=== PATIENT | male | born 1945 | race Caucasian/White ===

== ENCOUNTER 2020-07-13 19:04 | Emergency (ER) | payer OTHER, MEDICARE ==
[~2020-07-13] VITALS: Ht 175.3 cm; Wt 79.0 kg
[2020-07-13 20:06] LABS: BASO # 0.1 x10^3/uL (0.0-0.2); BASO % 1 % (0-3); EOS # 0.2 x10^3/uL (0.0-0.7); EOS % 2 % (0-3); HEMOGLOBIN 14.5 g/dL (13.0-17.5); LYMPH # 1.3 x10^3/uL (1.0-4.8); LYMPH % 12 % (24-48); MEAN CORPUSCULAR HEMOGLOBIN 32 pg (25-35); MEAN CORPUSCULAR HGB CONC 35 g/dL (31-37); MEAN CORPUSCULAR VOLUME 93 fL (79-100); MONO # 1.1 x10^3/uL (0.0-1.1); MONO % 10 % (0-9); NEUT # 8.6 x10^3/uL (1.8-7.7); NEUT % 76 % (31-73); PLATELET COUNT 249 x10^3/uL (140-400); RED BLOOD COUNT 4.54 x10^6/uL (4.30-5.70); RED CELL DISTRIBUTION WIDTH 13.6 % (11.5-14.5); WHITE BLOOD COUNT 11.4 x10^3/uL (4.0-11.0)
[2020-07-13 20:15] LABS: PROTHROMBIN TIME PATIENT 11.8 SEC (11.7-14.0)
[2020-07-13 20:19] LABS: CALCIUM 9.5 mg/dL (8.5-10.1); CREATININE 0.9 mg/dL (0.7-1.3); GFR 82.7; POTASSIUM 3.9 mmol/L (3.5-5.1)
[2020-07-13 20:25] LABS: ALBUMIN/GLOBULIN RATIO 1.1 (1.0-1.7); TOTAL BILIRUBIN 0.6 mg/dL (0.2-1.0); TOTAL PROTEIN 7.7 g/dL (6.4-8.2)
[2020-07-13 20:30] LABS: BILIRUBIN,URINE NEGATIVE (NEG); CLARITY,URINE CLEAR; COLOR,URINE YELLOW; NITRITE,URINE NEGATIVE (NEG); PH,URINE 5.5 (<5.0-8.0); PROTEIN,URINE NEGATIVE (NEG-TRACE)
[2020-07-13 20:34] LABS: BACTERIA,URINE 0 /HPF (0-FEW); RBC,URINE 0 /HPF (0-2); WBC,URINE OCC /HPF (0-4)
[2020-07-13 20:35] LABS: SQUAMOUS EPITHELIAL CELL,UR OCC /LPF
[2020-07-13] MEDS ORDERED: KETOROLAC 30 MG/ML VIAL. IVP ONE (21:00)
[2020-07-13] MEDS ORDERED: DEXAMETHASONE SOD PHOS 4 MG/ML VIAL IVP ONE (21:00)
--- NOTE | 2020-07-13 21:23 | RAD ---
Exam: VENOUS LOWER EXTREMITY RIGHT Indication: Reason: pain, swelling / Spl. Instructions: / History: Technique: Color-flow and pulsed wave duplex ultrasound with compression of venous structures of the right lower extremity. Comparison: None Available. Findings: Duplex ultrasound with compression of the deep venous structures of the right lower extremity from the common femoral vein through the popliteal vein is negative for DVT. The posterior tibial and peroneal veins are segmentally visualized and patent where seen. Normal venous waveforms and augmentation are noted throughout. Impression: No evidence for DVT in the right lower extremity. Electronically signed by: Prasad Barraza MD (07/13/2020 9:20 PM) SERGIO
[2020-07-13 22:39] VITALS: BP 120/70
--- NOTE | 2020-07-13 22:58 | RAD ---
CT scan of the abdomen and pelvis with contrast 07/13/2020 CLINICAL HISTORY: Right flank pain. TECHNIQUE: Unenhanced, contiguous, 2 mm axial sections were obtained through the abdomen and pelvis. One or more of the following individualized dose reduction techniques were utilized for this study: 1. Automated exposure control. 2. Adjustment of the mA and/or kV according to patient size. 3. Use of iterative reconstruction technique. FINDINGS: Images through the lung bases demonstrate minimal dependent subsegmental atelectasis bilaterally. There is mild cardiomegaly. A 2.3 cm rounded low-attenuation lesion is seen involving the left lobe of the liver consistent with a hepatic cyst. The spleen, pancreas, adrenal glands are within normal limits. A 1 cm nonobstructing calculus is seen involving the mid/lower pole of the left kidney. A 1 to 2 mm nonobstructing calculus is seen involving the superior pole of the left kidney. A 1 mm nonobstructing calculus is seen involving the lower pole of the right kidney. Mild fullness of the right intrarenal collecting system is seen. The right ureter is mildly dilated throughout its course. Within the right UVJ a faint 1 mm calcific density is seen which is felt to represent a right ureteral calculus. This appears to be causing mild obstruction of the right collecting system. There is no evidence of obstruction of the left collecting system. Atherosclerotic calcification abdominal aorta and its branches is noted. The abdominal aorta tapers normally. The gallbladder is contracted. No free fluid or free air is seen within the abdomen. There is no evidence of bowel obstruction. The appendix is well-visualized and is within normal limits. Images through pelvis demonstrate the urinary bladder distended with urine. The prostate gland is enlarged likely related to BPH. Calcifications are seen within the pelvis consistent with phleboliths. No free fluid is seen. Very mild S-shaped curvature of the thoracolumbar spine is seen. Degenerative changes are seen involving lower thoracic and mid and lower lumbar spine. IMPRESSION: There appears to be a 1 mm distal right ureteral calculus at the right UVJ causing mild obstruction of the right collecting system. Electronically signed by: Hugo Torres MD (07/13/2020 10:55 PM) [id number]
[2020-07-13] MEDS ORDERED: OXYC1TAB15 PO (23:38)
[2020-07-13] MEDS ORDERED: METH4TAB2 PO (23:38)
--- NOTE | 2020-07-13 23:39 | PHYS DOC ---
Past Medical History Past Medical History: No Pertinent History Past Surgical History: No Surgical History Smoking Status: Never Smoker Alcohol Use: None General Adult EDM: Chief Complaint: HIP PAIN HPI: HPI: Patient is a 74-year-old male who presents to the emergency room with right hip pain that radiates to the front and down his leg. He has never had pain similar to this in the past. He states it started over the last couple of days and is significantly worse anytime he tries to walk. He denies any urinary symptoms. He states he did have some leg pain that was in his calf for quite a while but is now resolved for about a week. Review of Systems: Review of Systems: General: Denies fever, chills, sweats, fatigue Eyes: Denies drainage, blurred vision, eye redness HENT: Denies rhinorrhea, sore throat, earache Respiratory: Denies cough, shortness of breath, wheezing Cardiac: Denies edema, palpitations, chest pain GI: Denies abdominal pain, Nausea, vomiting MSK: Reports flank pain, back pain, leg pain Skin: Denies rash, jaundice Neuro: Denies headache, dizziness Psychiatric: Denies SI/HI Heart Score: Risk Factors: Risk Factors: DM, Current or recent (<one month) smoker, HTN, HLP, family history of CAD, obesity. Risk Scores: Score 0 - 3: 2.5% MACE over next 6 weeks - Discharge Home Score 4 - 6: 20.3% MACE over next 6 weeks - Admit for Clinical Observation Score 7 - 10: 72.7% MACE over next 6 weeks - Early Invasive Strategies Current Medications: Current Medications Medications (Trade) Dose Ordered Sig/[facility] Start Time Stop Time Status Last Admin Dose Admin Dexamethasone Sodium Phosphate (Decadron) 10 mg 1X ONCE 07/13/20 21:00 07/13/20 21:01 DC 07/13/20 20:56 10 MG Ketorolac Tromethamine (Toradol 30mg Vial) 30 mg 1X ONCE 07/13/20 21:00 07/13/20 21:01 DC 07/13/20 20:56 30 MG Allergies: Allergies: Allergies Coded Allergies Type Severity Reaction Last Updated Verified No Known Drug Allergies 07/13/20 No Physical Exam: PE: General: Awake, alert, appears uncomfortable. Well Nourished, well hydrated. Cooperative HEENT: Atraumatic, EOMI, PERRL, airway patent, moist oral mucosa Neck: Supple, trachea midline Respiratory: CTA bilaterally, normal effort, no wheezing/crackles CV: RRR, no murmur, cap refill <2 GI: Soft, nondistended, nontender, no masses MSK: No obvious deformities, no back tenderness Skin: Warm, dry, intact Neuro: A&O x3, speech NL, sensory and motor grossly intact, no focal deficits Psych: Normal affect, normal mood, not suicidal or homicidal Current Patient Data: Labs: Laboratory Tests Test 07/13/20 19:50 07/13/20 20:20 White Blood Count 11.4 x10^3/uL (4.0-11.0) H Red Blood Count 4.54 x10^6/uL (4.30-5.70) Hemoglobin 14.5 g/dL (13.0-17.5) Hematocrit 42.0 % (39.0-53.0) Mean Corpuscular Volume 93 fL (79-100) Mean Corpuscular Hemoglobin 32 pg (25-35) Mean Corpuscular Hemoglobin Concent 35 g/dL (31-37) Red Cell Distribution Width 13.6 % (11.5-14.5) Platelet Count 249 x10^3/uL (140-400) Neutrophils (%) (Auto) 76 % (31-73) H Lymphocytes (%) (Auto) 12 % (24-48) L Monocytes (%) (Auto) 10 % (0-9) H Eosinophils (%) (Auto) 2 % (0-3) Basophils (%) (Auto) 1 % (0-3) Neutrophils # (Auto) 8.6 x10^3/uL (1.8-7.7) H Lymphocytes # (Auto) 1.3 x10^3/uL (1.0-4.8) Monocytes # (Auto) 1.1 x10^3/uL (0.0-1.1) Eosinophils # (Auto) 0.2 x10^3/uL (0.0-0.7) Basophils # (Auto) 0.1 x10^3/uL (0.0-0.2) Prothrombin Time 11.8 SEC (11.7-14.0) Prothrombin Time INR 0.9 (0.8-1.1) Sodium Level 140 mmol/L (136-145) Potassium Level 3.9 mmol/L (3.5-5.1) Chloride Level 102 mmol/L (98-107) Carbon Dioxide Level 31 mmol/L (21-32) Anion Gap 7 (6-14) Blood Urea Nitrogen 16 mg/dL (8-26) Creatinine 0.9 mg/dL (0.7-1.3) Estimated GFR (Cockcroft-Gault) 82.7 BUN/Creatinine Ratio 18 (6-20) Glucose Level 95 mg/dL (70-99) Calcium Level 9.5 mg/dL (8.5-10.1) Total Bilirubin 0.6 mg/dL (0.2-1.0) Aspartate Amino Transferase (AST) 17 U/L (15-37) Alanine Aminotransferase (ALT) 25 U/L (16-63) Alkaline Phosphatase 63 U/L (46-116) Total Protein 7.7 g/dL (6.4-8.2) Albumin 4.0 g/dL (3.4-5.0) Albumin/Globulin Ratio 1.1 (1.0-1.7) Lipase 884 U/L (73-393) H Urine Collection Type Unknown Urine Color Yellow Urine Clarity Clear Urine pH 5.5 (<5.0-8.0) Urine Specific [place] 1.015 (1.000-1.030) Urine Protein Negative mg/dL (NEG-TRACE) Urine Glucose (UA) Negative mg/dL (NEG) Urine Ketones (Stick) Negative mg/dL (NEG) Urine Blood Negative (NEG) Urine Nitrite Negative (NEG) Urine Bilirubin Negative (NEG) Urine Urobilinogen Dipstick 1.0 mg/dL (0.2 mg/dL) Urine Leukocyte Esterase Negative (NEG) Urine RBC 0 /HPF (0-2) Urine WBC Occ /HPF (0-4) Urine Squamous Epithelial Cells Occ /LPF Urine Bacteria 0 /HPF (0-FEW) Urine Mucus Mod /LPF Laboratory Tests 07/13/20 19:50 Laboratory Tests 07/13/20 19:50 Vital Signs: Vital Signs Date Time Temp Pulse Resp B/P (MAP) Pulse Ox O2 Delivery O2 Flow Rate FiO2 07/13/20 20:49 86 18 132/73 (92) 99 Room Air 07/13/20 19:20 98.3 98.3 EKG: EKG: [] Radiology/Procedures: Radiology/Procedures: [] Course & Med Decision Making: Course & Med Decision Making Pertinent Labs and Imaging studies reviewed. (See chart for details) Patient is a 74-year-old male who presents to the emergency room with right flank pain that radiates into his leg and groin area. This could be related to a kidney stone versus sciatica versus blood clot. Ultrasound will be done of the leg, CT abdomen pelvis, labs were ordered. US negative. CT shows kidney stone. Patient will be treated symptomatically. Patient's test results and vitals while in the ED were fully reviewed and discussed with the patient. Patient is stable and at this time does not need admission to the hospital. We have discussed strict return precautions and the importance of following up with their Primary Care Physician. Patient stated understanding and was given an opportunity to ask any questions. Patient is in agreement with plan. Dragon Disclaimer: Dragon Disclaimer: This electronic medical record was generated, in whole or in part, using a voice recognition dictation system. Departure Departure Impression: Primary Impression: Kidney stone Additional Impression: Sciatica Disposition: 01 HOME, SELF-CARE Condition: STABLE Referrals: ELIZABETH PRATT DO (PCP) Patient Instructions: Kidney Stones, Sciatica Scripts Methylprednisolone (MEDROL) 4 Mg Tab.ds.pk 1 PKG PO UD for inflammation, #1 PKG Prov: CARLY WILDE MD 07/13/20 Oxycodone/Apap 5-325 (PERCOCET 5-325 MG TABLET ) 1 Each Tablet 1 TAB PO PRN Q6HRS PRN for PAIN, #12 TAB 0 Refills Prov: CARLY WILDE MD 07/13/20 Justicifation of Admission Dx: Justifications for Admission: Justification of Admission Dx: N/A CARLY WILDE MD Jul 13, 2020 23:38
[2020-07-13] MEDS ORDERED: oxyCODONE/APAP 5/325 1 TAB TABLET PO ONE (23:55)
== END 2020-07-14 00:17 | disposition home or self-care (01) ==
LOC: ER 19:04
DX: N20.0 Calculus of kidney (principal); M54.31 Sciatica, right side; M25.551 Pain in right hip
CPT/HCPCS: 36415; 74176; 80053; 81001; 83690; 85025; 85610; 93971; 96374; 96375; 99285; J1100; J1885

== ENCOUNTER 2020-09-26 07:17 | Emergency (ER) | payer OTHER, MEDICARE ==
[~2020-09-26] VITALS: Ht 175.3 cm; Wt 84.1 kg
[~2020-09-26 07:17] MED LIST: METH4TAB2 PO; OXYC1TAB15 PO
--- NOTE | 2020-09-26 07:23 | PHYS DOC ---
Past Medical History Past Medical History: Kidney Stone Past Surgical History: No Surgical History Smoking Status: Never Smoker Alcohol Use: None General Adult EDM: Chief Complaint: FLANK PAIN HPI: HPI: Patient is a 74 year old male who presented to ER for evaluation of right-sided flank pain and lower back pain that radiating to right leg started 2 days ago. Pain was subsided then become more severe this morning so he came here for evaluation. Patient denies any nausea vomiting, denies any bowel or bladder incontinence, no leg weakness or numbness. Patient was seen here on July 13 this year for abdominal pain, he was diagnosed with kidney stone. Patient denies any injury. Patient has no history of hypertension or diabetic. Review of Systems: Review of Systems: Constitutional: Denies fever or chills. [] Eyes: Denies change in visual acuity. [] HENT: Denies nasal congestion or sore throat. [] Respiratory: Denies cough or shortness of breath. [] Cardiovascular: Denies chest pain or edema. [] GI: Positive for right side abdominal pain, no nausea vomiting, no diarrhea : Denies dysuria. [] Musculoskeletal: Positive for right-sided back pain. Integument: Denies rash. [] Neurologic: Denies headache, focal weakness or sensory changes. [] Endocrine: Denies polyuria or polydipsia. [] Lymphatic: Denies swollen glands. [] Psychiatric: Denies depression or anxiety. [] Heart Score: Risk Factors: Risk Factors: DM, Current or recent (<one month) smoker, HTN, HLP, family history of CAD, obesity. Risk Scores: Score 0 - 3: 2.5% MACE over next 6 weeks - Discharge Home Score 4 - 6: 20.3% MACE over next 6 weeks - Admit for Clinical Observation Score 7 - 10: 72.7% MACE over next 6 weeks - Early Invasive Strategies Allergies: Allergies: Allergies Coded Allergies Type Severity Reaction Last Updated Verified No Known Drug Allergies 07/13/20 No Physical Exam: PE: Constitutional: Well developed, well nourished, no acute distress, non-toxic appearance. [] HENT: Normocephalic, atraumatic, bilateral external ears normal, oropharynx moist, no oral exudates, nose normal. [] Eyes: PERRLA, EOMI, conjunctiva normal, no discharge. [] Neck: Normal range of motion, no tenderness, supple, no stridor. [] Cardiovascular:Heart rate regular rhythm, no murmur [] Lungs & Thorax: Bilateral breath sounds clear to auscultation [] Abdomen: Bowel sounds normal, soft, RLQ tenderness, no masses, no pulsatile masses. [] Skin: Warm, dry, no erythema, no rash. [] Back: No tenderness, Right CVA tenderness. [] Extremities: No tenderness, no cyanosis, no clubbing, ROM intact, no edema. [] Neurologic: Alert and oriented X 3, normal motor function, normal sensory function, no focal deficits noted. [] Psychologic: Affect normal, judgement normal, mood normal. [] Current Patient Data: Labs: Laboratory Tests Test 09/26/20 07:26 09/26/20 09:31 Urine Collection Type Void Urine Color Peggy Urine Clarity Clear Urine pH 5.0 Urine Specific [place] 1.025 Urine Protein Negative mg/dL Urine Glucose (UA) Negative mg/dL Urine Ketones (Stick) Negative mg/dL Urine Blood Negative Urine Nitrite Negative Urine Bilirubin Negative Urine Urobilinogen Dipstick 1.0 mg/dL Urine Leukocyte Esterase Negative Urine RBC 0 /HPF Urine WBC Occ /HPF Urine Bacteria Few /HPF Urine Mucus Marked /LPF White Blood Count 9.9 x10^3/uL Red Blood Count 4.63 x10^6/uL Hemoglobin 14.4 g/dL Hematocrit 43.2 % Mean Corpuscular Volume 93 fL Mean Corpuscular Hemoglobin 31 pg Mean Corpuscular Hemoglobin Concent 33 g/dL Red Cell Distribution Width 13.4 % Platelet Count 193 x10^3/uL Neutrophils (%) (Auto) 71 % Lymphocytes (%) (Auto) 11 % Monocytes (%) (Auto) 15 % Eosinophils (%) (Auto) 3 % Basophils (%) (Auto) 1 % Neutrophils # (Auto) 7.0 x10^3/uL Lymphocytes # (Auto) 1.1 x10^3/uL Monocytes # (Auto) 1.4 x10^3/uL Eosinophils # (Auto) 0.3 x10^3/uL Basophils # (Auto) 0.1 x10^3/uL Sodium Level 139 mmol/L Potassium Level 4.0 mmol/L Chloride Level 102 mmol/L Carbon Dioxide Level 29 mmol/L Anion Gap 8 Blood Urea Nitrogen 17 mg/dL Creatinine 1.0 mg/dL Estimated GFR (Cockcroft-Gault) 73.2 BUN/Creatinine Ratio 17 Glucose Level 91 mg/dL Calcium Level 9.0 mg/dL Total Bilirubin 0.8 mg/dL Aspartate Amino Transf (AST/SGOT) 16 U/L Alanine Aminotransferase (ALT/SGPT) 21 U/L Alkaline Phosphatase 56 U/L Total Protein 6.9 g/dL Albumin 3.5 g/dL Albumin/Globulin Ratio 1.0 Lipase 130 U/L Current Medications Medications (Trade) Dose Ordered Sig/[facility]ina Route PRN Reason Start Time Stop Time Status Last Admin Dose Admin Sodium Chloride 1,000 ml @ 1,000 mls/hr Q1H IV 09/26/20 07:30 09/26/20 08:29 DC 09/26/20 09:18 Ondansetron HCl (Zofran) 4 mg 1X ONCE IVP 09/26/20 08:00 09/26/20 08:01 DC 09/26/20 09:19 Morphine Sulfate (Morphine Sulfate) 4 mg 1X ONCE IV 09/26/20 08:00 09/26/20 08:01 DC 09/26/20 09:19 Ketorolac Tromethamine (Toradol 30mg Vial) 30 mg 1X ONCE IVP 09/26/20 08:00 09/26/20 08:01 DC 09/26/20 09:19 EKG: EKG: [] Radiology/Procedures: Radiology/Procedures: [][facility] [address] [place] [address] IMAGING REPORT Signed PATIENT: JANENE BUCHANAN ACCOUNT: [id number] : 1945 LOCATION: ER AGE: 74 SEX: M EXAM STATUS: PRE ER ORD. PHYSICIAN: JOSE RAMON MANLEY DO REASON: RT flank pain PROCEDURE: CT ABDOMEN PELVIS WO CONTRAST EXAM: CT Abdomen and Pelvis without IV contrast INDICATION: Reason: RT flank pain / Spl. Instructions: / History: TECHNIQUE: Multi-detector row CT images were acquired from the lung bases through the abdomen and pelvis without the use of IV contrast. Sagittal and coronal images were acquired from the transaxial data. All CT scans performed at this facility utilize dose optimization techniques as appropriate to the exam, including the following: Automated exposure control and adjustment of the mA and/or KV according to patient size (this includes techniques or standardized protocols for targeted exams where dose is indication/reason for exam). ORAL CONTRAST: None COMPARISON: Noncontrast abdomen pelvis CT 07/13/2020 FINDINGS: The absence of IV contrast limits evaluation of soft tissue pathology. LOWER CHEST: Coronary calcifications. LIVER: Unchanged 2 cm hypodense lesion in the left hepatic lobe compatible with a cyst. BILIARY SYSTEM: Gallbladder is unremarkable. Bile ducts are not dilated. PANCREAS: Unremarkable SPLEEN: Unremarkable ADRENALS: Unremarkable KIDNEYS & URETERS: Punctate nonobstructing stone of the inferior pole right kidney measuring 1 to 2 mm. No right hydronephrosis or hydroureter and no right-sided ureteral stones identified. Left kidney contains a large inferior pole stone measuring 9 mm. No left-sided hydronephrosis or hydroureter. BLADDER: Unremarkable REPRODUCTIVE ORGANS: Prostate mildly enlarged at 5.5 cm diameter. GASTROINTESTINAL: The stomach, small bowel, and colon are unremarkable. The appendix is normal. MESENTERY/PERITONEUM/RETROPERITONEUM: Unremarkable VASCULAR: Unremarkable LYMPH NODES: No adenopathy OSSEOUS & SOFT TISSUES: Small fat-containing umbilical hernia. Mild levoscoliosis of the lumbar spine, apex at L3. IMPRESSION: No specific cause for right-sided flank pain is identified on this examination. Although there is bilateral nephrolithiasis left greater than right, no findings of obstructive uropathy or ureteral stones are noted. Electronically signed by: Sadie Terrazas MD (09/26/2020 8:12 AM) [id number] DICTATED and SIGNED BY: SADIE TERRAZAS MD DATE: 09/26/20 [id number] [facility] [address] [place] [address] IMAGING REPORT Signed PATIENT: JANENE BUCHANAN ACCOUNT: [id number] : 1945 LOCATION: ER AGE: 74 SEX: M EXAM STATUS: REG ER ORD. PHYSICIAN: JOSE RAMON MANLEY DO REASON: lower back pain, rt flank pain PROCEDURE: LUMBAR SPINE 2-3V EXAM: Lumbar spine, 3 views. HISTORY: Pain. COMPARISON: CT obtained on the same date. FINDINGS: 3 views of the lumbar spine are obtained. There is lumbar levoscoliosis centered at L2. There is grade 1 anterolisthesis of L4 and L5. There is multilevel endplate remodeling. There is facet arthropathy at the lower lumbar levels. There is left nephrolithiasis, better characterized on the CT obtained on the same date. IMPRESSION: 1. Multilevel degenerative change, primarily at the lower lumbar levels. 2. Mild scoliosis and grade 1 anterolisthesis of L4 on L5. 3. Left nephrolithiasis. Electronically signed by: Naty Marie MD (09/26/2020 8:55 AM) [facility] DICTATED and SIGNED BY: NATY MARIE MD DATE: 09/26/20 [id number] 0 Course & Med Decision Making: Course & Med Decision Making Patient is a 73-year-old male who was evaluated in ER due to right side abdominal pain back pain radiated to his right leg. Patient denies any bowel bladder incontinence. CT scan of the head abdomen pelvic and lumbar spine show some disc problem. His symptoms are most likely due to sciatic problem. Patient will be discharged home, he will need to follow-up with his family physician for outpatient evaluation with MRI of his lumbar spine. Patient is amenable to plan of care. Pertinent Labs and Imaging studies reviewed. (See chart for details) [] [place]ony[place] Disclaimer: Dyan Disclaimer: This electronic medical record was generated, in whole or in part, using a voice recognition dictation system. Departure Departure Impression: Primary Impression: Sciatica, right side Additional Impression: Flank pain Disposition: 01 DC HOME SELF CARE/HOMELESS Condition: STABLE Referrals: ELIZABETH PRATT DO (PCP) please follow up with your doctor next week for outpatient evaluation with MRI of your lower back. Patient Instructions: Flank Pain, Sciatica Additional Instructions: Thank you for visiting our Emergency Department. We appreciate you trusting us with your care. If any additional problems come up don't hesitate to return to visit us. Please follow up with your primary care provider so they can plan additional care if needed and know about the problem that you had. If symptoms worsen come back to the Emergency Department. Any concerning symptoms that start such as chest pain, shortness of air, weakness or numbness on one side of the body, running high fevers or any other concerning symptoms return to the ER. Scripts Hydrocodone/Apap 5-325 (NORCO 5-325 TABLET) 1 Each Tablet 1 TAB PO PRN Q6HRS PRN for PAIN, #15 TAB 0 Refills Prov: JOSE RAMON MANLEY DO 09/26/20 Prednisone (PREDNISONE) 20 Mg Tablet 1 TAB PO DAILY for 7 Days, #7 TAB Prov: JOSE RAMON MANLEY DO 09/26/20 JOSE RAMON MANLEY DO Sep 26, 2020 07:23
[2020-09-26] MEDS ORDERED: IV NORMAL SALINE 1000ML BAG 1,000 ML IV SCH (07:30)
[2020-09-26 07:43] LABS: BILIRUBIN,URINE NEGATIVE (NEG); CLARITY,URINE CLEAR; COLOR,URINE AMBER; NITRITE,URINE NEGATIVE (NEG); PROTEIN,URINE NEGATIVE (NEG-TRACE)
[2020-09-26 07:58] LABS: RBC,URINE 0 /HPF (0-2)
[2020-09-26 07:59] LABS: BACTERIA,URINE FEW /HPF (0-FEW); WBC,URINE OCC /HPF (0-4)
[2020-09-26] MEDS ORDERED: ONDANSETRON PF 4 MG/2 ML VIAL. IVP ONE (08:00)
[2020-09-26] MEDS ORDERED: MORPHINE SULFATE 4 MG/ML VIAL. IV ONE (08:00)
[2020-09-26] MEDS ORDERED: KETOROLAC 30 MG/ML VIAL. IVP ONE (08:00)
--- NOTE | 2020-09-26 08:14 | RAD ---
EXAM: CT Abdomen and Pelvis without IV contrast INDICATION: Reason: RT flank pain / Spl. Instructions: / History: TECHNIQUE: Multi-detector row CT images were acquired from the lung bases through the abdomen and pelvis without the use of IV contrast. Sagittal and coronal images were acquired from the transaxial data. All CT scans performed at this facility utilize dose optimization techniques as appropriate to the exam, including the following: Automated exposure control and adjustment of the mA and/or KV according to patient size (this includes techniques or standardized protocols for targeted exams where dose is indication/reason for exam). ORAL CONTRAST: None COMPARISON: Noncontrast abdomen pelvis CT 07/13/2020 FINDINGS: The absence of IV contrast limits evaluation of soft tissue pathology. LOWER CHEST: Coronary calcifications. LIVER: Unchanged 2 cm hypodense lesion in the left hepatic lobe compatible with a cyst. BILIARY SYSTEM: Gallbladder is unremarkable. Bile ducts are not dilated. PANCREAS: Unremarkable SPLEEN: Unremarkable ADRENALS: Unremarkable KIDNEYS & URETERS: Punctate nonobstructing stone of the inferior pole right kidney measuring 1 to 2 mm. No right hydronephrosis or hydroureter and no right-sided ureteral stones identified. Left kidney contains a large inferior pole stone measuring 9 mm. No left-sided hydronephrosis or hydroureter. BLADDER: Unremarkable REPRODUCTIVE ORGANS: Prostate mildly enlarged at 5.5 cm diameter. GASTROINTESTINAL: The stomach, small bowel, and colon are unremarkable. The appendix is normal. MESENTERY/PERITONEUM/RETROPERITONEUM: Unremarkable VASCULAR: Unremarkable LYMPH NODES: No adenopathy OSSEOUS & SOFT TISSUES: Small fat-containing umbilical hernia. Mild levoscoliosis of the lumbar spine, apex at L3. IMPRESSION: No specific cause for right-sided flank pain is identified on this examination. Although there is bilateral nephrolithiasis left greater than right, no findings of obstructive uropathy or ureteral stones are noted. Electronically signed by: Tali Terrazas MD (09/26/2020 8:12 AM) [id number]
--- NOTE | 2020-09-26 08:58 | RAD ---
EXAM: Lumbar spine, 3 views. HISTORY: Pain. COMPARISON: CT obtained on the same date. FINDINGS: 3 views of the lumbar spine are obtained. There is lumbar levoscoliosis centered at L2. There is grade 1 anterolisthesis of L4 and L5. There is multilevel endplate remodeling. There is facet arthropathy at the lower lumbar levels. There is left nephrolithiasis, better characterized on the CT obtained on the same date. IMPRESSION: 1. Multilevel degenerative change, primarily at the lower lumbar levels. 2. Mild scoliosis and grade 1 anterolisthesis of L4 on L5. 3. Left nephrolithiasis. Electronically signed by: Naty Barrett MD (09/26/2020 8:55 AM) [facility]
[2020-09-26 09:43] LABS: BASO # 0.1 x10^3/uL (0.0-0.2); BASO % 1 % (0-3); EOS # 0.3 x10^3/uL (0.0-0.7); EOS % 3 % (0-3); HEMATOCRIT 43.2 % (39.0-53.0); HEMOGLOBIN 14.4 g/dL (13.0-17.5); LYMPH # 1.1 x10^3/uL (1.0-4.8); LYMPH % 11 % (24-48); MEAN CORPUSCULAR HEMOGLOBIN 31 pg (25-35); MEAN CORPUSCULAR HGB CONC 33 g/dL (31-37); MEAN CORPUSCULAR VOLUME 93 fL (79-100); MONO # 1.4 x10^3/uL (0.0-1.1); MONO % 15 % (0-9); NEUT % 71 % (31-73); PLATELET COUNT 193 x10^3/uL (140-400); RED BLOOD COUNT 4.63 x10^6/uL (4.30-5.70); RED CELL DISTRIBUTION WIDTH 13.4 % (11.5-14.5); WHITE BLOOD COUNT 9.9 x10^3/uL (4.0-11.0)
[2020-09-26 09:55] LABS: GFR 73.2
[2020-09-26 10:01] LABS: ALBUMIN 3.5 g/dL (3.4-5.0); TOTAL BILIRUBIN 0.8 mg/dL (0.2-1.0); TOTAL PROTEIN 6.9 g/dL (6.4-8.2)
[2020-09-26] MEDS ORDERED: HYDR-3164 PO (10:38)
[2020-09-26] MEDS ORDERED: PRED20TA PO (10:38)
[2020-09-26 10:44] VITALS: BP 122/59
== END 2020-09-26 10:43 | disposition home or self-care (01) ==
LOC: ER 07:17
DX: M54.41 Lumbago with sciatica, right side (principal); R10.31 Right lower quadrant pain; M41.86 Other forms of scoliosis, lumbar region; Z87.442 Personal history of urinary calculi
CPT/HCPCS: 36415; 72100; 74176; 80053; 81001; 83690; 85025; 96361; 96374; 96375; 99285; J1885; J2270; J2405; J7030

== ENCOUNTER → 2020-10-01 | Outpatient (CLI) | payer BC, MEDICARE, OTHER ==
[2020-09-26 10:44] VITALS: BP 122/59
[~2020-10-01] MED LIST changes: +HYDR-3164 PO; +PRED20TA PO
--- NOTE | 2020-10-01 11:47 | KCIC ---
EXAMINATION: Magnetic resonance imaging (MRI) of the lumbar spine without contrast 10/01/2020 11:00 AM HISTORY: Low back pain. TECHNIQUE: Multiplanar multi-weighted MRI of the lumbar spine was performed without intravenous contrast using the standard lumbar spine protocol. Contrast information: None administered. COMPARISON: None available. FINDINGS: Minimal levoconvex curvature of the lumbar spine is noted. There is straightening of the normal lumbar lordosis with minimal anterolisthesis of L2 on L3 and L4 on L5. Vertebral bodies demonstrate normal signal intensity on all sequences. There are no compression fractures. The conus medullaris terminates at the level of L1. The distal spinal cord signal intensity is normal. There is disc desiccation at all levels of lumbar spine, sparing L5-S1. Limited views of the abdomen and pelvis show no soft tissue abnormality. The aorta is normal. L1-L2: The disc is normal in configuration. There is no facet arthropathy. There is no neuroforaminal stenosis. There is no spinal canal stenosis. L2-L3: There is mild disc bulge asymmetric to the left. Mild facet arthropathy. No significant neuroforaminal or spinal canal stenosis. L3-L4: Mild disc bulge. Mild facet arthropathy. Mild right neural foraminal stenosis. No spinal canal stenosis. L4-L5: There is a circumferential disc bulge. Moderate facet arthropathy ligamentum flavum infolding. Moderate bilateral neuroforaminal stenosis. There is right lateral recess stenosis, exacerbated by ligamentum flavum infolding. Mild to moderate spinal canal stenosis with narrowing of the thecal sac in the transverse dimension. L5-S1: The disc is normal in configuration. There is mild facet arthropathy. There is no neuroforaminal stenosis. There is no spinal canal stenosis. IMPRESSION: Mild degenerative changes of the lumbar spine as described in detail above. Electronically signed by: Lisa Chavez MD (10/01/2020 11:44 AM) [facility]
== END ==
LOC: KCIC MRI 10:38
PROVIDERS: ATTEND Family Medicine
DX: M47.817 Spondylosis without myelopathy or radiculopathy, lumbosacral region (principal); M48.061 Spinal stenosis, lumbar region without neurogenic claudication
CPT/HCPCS: 72148

== ENCOUNTER → 2020-10-09 | Outpatient (CLI) | payer OTHER, MEDICARE ==
[2020-09-26 10:44] VITALS: BP 122/59
[~2020-10-09] MED LIST changes: +ATOR20TA PO; +GABA-585 PO
--- NOTE | 2020-10-09 10:17 | PDOC1 ---
INITIAL PAIN CONSULT DATE OF SERVICE: DOS: DATE: 10/09/20 TIME: 10:11 CHIEF COMPLAINT: Chief Complaint: Low back and right lower extremity pain HISTORY OF PRESENT ILLNESS: 74-year-old male presents history of pain low back right lower extremity for about 6 months now not the result of any specific injury or accident that he is aware of but the pain is with radiation to the right posterior gluteus lateral thigh anterior thigh medial thigh into the calf on the right side with walking standing changing positions. Patient reports generally is not awakening from sleep at night but initially it had patient reports he went to the emergency department and had evaluation also MRI scan was done showing L4-5 circumferential disc bulge with mild bilateral neuroforaminal stenosis with right lateral recess stenosis exacerbated ligamentum flavum infolding mild to moderate spinal canal stenosis with narrowing of the thecal sac in the transverse direction. Patient reports after steroid dose he felt much better and his pain is only about a 3 on a scale 10 is worse now patient reports is much more manageable initially was much more exacerbated and painful in the right lower extremity. Patient ports at the time is worse with standing walking changing position especially standing for prolonged periods greater than 30 minutes now is doing better still occasionally wakes him from sleep at night but very rarely patient has not had any other formal physical therapies chiropractic treatments or other modalities. Patient was taking some Tylenol [id number] er at home which helped the pain by about 20% as well patient ports right now and is doing fairly well. 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 Patient reports no loss of motor function no bowel or bladder incontinence. She is doing stretching and walking daily which he feels helps as well. PAST MEDICAL HISTORY: PMH: Arthritis, hyperlipidemia PREVIOUS SURGERIES: Past Surgical Hx: No previous surgeries CURRENT MEDICATIONS: Current Meds: Active Scripts Medications Dose Route/Sig Max Daily Dose Days Date Category Lipitor (Atorvastatin Calcium) 20 Mg Tablet 20 Mg PO HS 10/09/20 Reported Gabapentin (Gabapentin) 100 Mg Capsule 100 Mg PO HS 10/09/20 Reported ALLERGIES; Allergies: Coded Allergies: No Known Drug Allergies (Unverified , 07/13/20) FAMILY HISTORY: Family Hx: No major medical problems or conditions that he is aware of SOCIAL HISTORY: Social Hx: Patient is under alcohol does not smoke not use any illegal illicit recreational drugs is single lives locally in [place] REVIEW OF SYSTEMS: ROS: Positive for those items mentioned in history of present illness, all systems are reviewed, otherwise negative, is complete full and well-documented on patient's chart. PHYSICAL EXAM: VS: Blood pressure is 122/58 pulse 75 respirations 18 temperature is 98.1 F height is 5 foot 9 inches weight is 185 pounds PE: PHYSICAL EXAMINATION: GENERAL: The patient is awake, alert, oriented, appropriate, very pleasant demeanor HEENT: Shows normocephalic, atraumatic. Extraocular movements are intact and symmetrical. Oral cavity: Mucous membranes moist and pink. Dentition is intact. NECK: Shows anterior throat supple without palpable lymphadenopathy noted. Swallow reflex symmetrical. CHEST: Shows normal on inspection. Breath sounds are clear bilaterally, no rales rhonchi wheezes auscultated. HEART: Shows S1, S2 clear. No murmurs auscultated. ABDOMEN: Soft, nontender, nondistended, obese. No palpable organomegaly is noted. No rebound or guarding demonstrated. BACK: Shows spine grossly in the midline. Normal-appearing cervical lordotic curvature. There is slightly increased thoracic kyphosis, some flattening of the lumbar lordotic curvature. Lumbar paraspinous muscles show symmetrical on inspection, on palpation shows some moderate tenderness diffusely throughout the upper, middle and lower distribution of the paraspinous muscles bilaterally without specific trigger points, without radiation of pain. The patient has good rotational motion of the lumbar spine, both laterally as well as extension and flexion without significant difficulty. No tenderness over the spinous processes, sacrum or sacroiliac regions. EXTREMITIES: Lower extremities show deep tendon reflexes 2+ in the patellar and tendo calcaneus tendons. Motor exam is 5 on a scale of 5 with right dorsiflexion, extension, quadriceps and hamstring flexion and 5/5 on the left. Peripheral pulses are 1 posterior tibial. No peripheral edema is noted bilaterally. Lower extremities are warm and dry to touch, equal in color and appearance. Straight leg raise noted to be negative bilaterally. Gaenslen's and Yaw's maneuvers are negative as well. The patient is able to stand, stand on toes without significant difficulty or loss of balance walks with a normal-appearing gait is not appear to favor the right or left lower extremity significantly for short distance the office today. Patient not use any assistive device such as canes or walkers to ambulate.. SKIN: Shows warm and dry, good turgor. No edema. No sores, rashes or bruising throughout. IMPRESSION: Impression: 74-year-old male with 6-month history low back right lower extremity pain in a radicular fashion following an L4-5 dermatomal distribution MRI scan lumbar spine as noted Arthritis Hyperlipidemia Plan: Options were discussed with the patient including conservative medical management physical therapies interventional techniques. Patient would like to pursue most conservative measures at this time we will order physical therapy for him to start as soon as available. If not significantly improved we did discuss potential interventional techniques such as lumbar epidural steroid injection translaminar approach at the L4-5 level. Patient understands and agrees like to try physical therapy first we will try this if not significant improved we will preauthorize patient for lumbar epidural steroid injection. DAMIAN HELLER MD Oct 09, 2020 10:17
== END | disposition home or self-care (01) ==
LOC: PNCL 09:07
PROVIDERS: ATTEND Anesthesiology
DX: M54.5 Low back pain (principal); M79.604 Pain in right leg; M19.90 Unspecified osteoarthritis, unspecified site; E78.5 Hyperlipidemia, unspecified; Z79.899 Other long term (current) drug therapy; Z98.890 Other specified postprocedural states
CPT/HCPCS: G0463